=== PATIENT | male | born 1970 | race Caucasian/White ===

== ENCOUNTER 2017-05-02 11:03 | Day surgery (SDC) | payer BC, OTHER ==
[~2017-05-02 11:03] MED LIST: RINGER'S SOLUTION,LACTATED 1,000 ML IV PRN
[2017-05-02] MEDS ORDERED: BUPIVACAINE HCL/EPINEPHRINE 50 ML VIAL IJ ONE (13:20)
--- NOTE | 2017-05-02 13:33 | OR ---
Operative Report - Dictated Report Narrative: Date: 05/02/2017 Preoperative diagnosis: 4 cm posterior cervical lipoma, C7 spinous process. Ganglion cyst right lateral wrist Postoperative diagnosis: Same Procedure: Excision of posterior cervical lipoma. Drainage ganglion cyst right wrist Staff surgeon: Orlando Garcia MD Anesthesia: Local MAC EBL: Minimal Specimen: 4 x 3 cm lipoma, posterior cervical Description of procedure: The patient was placed in the left lateral decubitus position and the neck was prepped and draped in a sterile fashion field block was performed around this palpable lipoma overlying the C7 spinous process. Incision was carried through the subcutaneous tissue to a pseudocapsule that was incised with electrocautery. The lipoma was adherent to the internal surfaces of the pseudocapsule. These adhesions were broken down with blunt finger dissection and electrocautery. The lipoma was excised in its entirety. It was submitted for pathologic examination. Hemostasis appeared to be adequate. The incision was closed with a subcuticular stitch of 4-0 Vicryl and then sealed with Dermabond. Attention was turned to the right wrist. He has a ganglion cyst on the lateral aspect of his right wrist. This was prepped with alcohol and anesthetized with Marcaine. The cyst was cannulated with an 18-gauge needle and drained of its gelatinous material. Compression on this area was performed and hemostasis appeared to be adequate. A Band-Aid was applied. The patient tolerated the procedure well without any apparent complications and was discharged from the operating room in stable condition.
[2017-05-02 15:22] VITALS: BP 150/96
== END 2017-05-02 11:04 | disposition home or self-care (01) ==
LOC: AMB 11:03
PROVIDERS: ATTEND Specialist
PROC: 0JB40ZZ Excision of Right Neck Subcutaneous Tissue and Fascia, Open Approach (ICD-10-PCS; principal; 2017-05-02)
PROC: 0X9D3ZZ Drainage of Right Lower Arm, Percutaneous Approach (ICD-10-PCS; 2017-05-02)
DX: M67.431 Ganglion, right wrist; D17.0 Benign lipomatous neoplasm of skin and subcutaneous tissue of head, face and neck; K21.9 Gastro-esophageal reflux disease without esophagitis; F32.9 Major depressive disorder, single episode, unspecified; Z68.29 Body mass index [BMI] 29.0-29.9, adult